=== PATIENT | male | born 1960 | race Caucasian/White ===

== ENCOUNTER 2025-01-10 07:04 | Day surgery (SDC) | payer OTHER ==
[2025-01-10] VITALS (17 sets, daily range): BP systolic 108–145; BP diastolic 69–99
[~2025-01-10] VITALS: Ht 172.7 cm; Wt 86.0 kg
--- NOTE | 2025-01-10 07:49 | NUR ---
Ambulatory in Day Surgery History, Chart, Medications and Allergies reviewed before start of procedure.Pre-Op teaching done. Pt verbalizes understanding. Patient States Post-Procedure ride home has been arranged.
--- NOTE | 2025-01-10 07:54 | NUR ---
01/10/25 0754 Justina Whitfield CONFIRMED AND REVIEWED H&P, MEDCICATIONS, ALLERGIES, MEDICAL HISTORY, RESPIRATORY HISTORY, VITAL SIGNS, 3-LEAD EKG, CONSENTS, AND PHYSICIAN ORDERS. PATIENT CONFIRMS NPO STATUS AND AGREES WITH SCHEDULED PROCEDURE. MONITOR INTACT WITH CONTINUOUS PULSE OXIMETRY, CAPNOGRAPHY, 3-LEAD EKG, INTERMITTENT BP. SUPPLEMENTAL O2 TO BE TITRATED THROUGHOUT PROCEDURE TO MAINTAIN O2 SATURATION ABOVE 90%. PATIENT DETERMINED TO BE ASA APPROPRIATE FOR PROPOFOL SEDATION PRIOR TO START OF PROCEDURE BY .MALLAMPATI CLASS 2 AIRWAY: COMPLETE VISUALIZATION OF THE UVULA.
[2025-01-10] MEDS ORDERED: Glycopyrrolate 0.2 MG/ML 1MLVIAL ONE (07:55)
--- NOTE | 2025-01-10 09:04 | NUR ---
TO STEP POST PROCEDURE. AVA PO WELL. DENIES PAIN, NAUSEA, SOB. DC'D IV INTACT. CHANGED AT BEDSIDE WITH STEADY GAIT. DC'D VIA WC TO PRIVATE CAR WITH [employer]MI[employer] REPRESENTATIVE AND BELONGINGS.
== END 2025-01-10 08:45 | disposition home or self-care (01) ==
LOC: ORSCMMR 07:04 → ORD 09:45
PROVIDERS: Internal Medicine Gastroenterology
PROC: 0DJD8ZZ Inspection of Lower Intestinal Tract, Via Natural or Artificial Opening Endoscopic (ICD-10-PCS; principal; 2025-01-10 08:15)
DX: Z12.11 Encounter for screening for malignant neoplasm of colon (principal)
CPT/HCPCS: J2704; J7120